=== PATIENT | female | born 1930 | race Caucasian/White ===

== ENCOUNTER 2017-04-01 14:07 | Inpatient (IN) | payer MEDICARE ==
[~2017-04-01] VITALS: Ht 160 cm; Wt 64.4 kg
[~2017-04-01 14:07] MED LIST: AMIT10 PO; AMITRIPTYLINE PO; ASPI81EC PO; BENZ2 PO; BISA10S PR; CALPHO600 PO; Colace100 MG PO; GAVILAX17 GM PO; HYDR1TAB94 PO; LEVSOD75 PO; MAGGLU250 PO; MULVITA PO; Norco 5-325 Ta1 EACH PO; PREG150 PO; PREG75 PO; Prilosec20 MG PO; VITB100 PO; [UNRECOGNIZED DRUG - OTHER] PO
[2017-04-16] MEDS ORDERED: Omeprazole20 M1 PO (11:02)
[2017-04-24] MEDS ORDERED: OXYC10TA19 PO (06:37)
[2017-04-25 04:57] LABS: BASOPHILS ABSOLUTE AUTO 0.01 K/mm3 (0.00-0.23); BASOPHILS PERCENT AUTO 0 % (0-2); EOSINOPHILS PERCENT AUTO 0 % (0-6); Hematocrit 30.1 % (33.0-51.0); IMMATURE GRAN ABSOLUTE AUTO 0.01 K/mm3 (0.00-0.10); IMMATURE GRAN PERCENT AUTO 0 % (0-1); LYMPHOCYTES PERCENT AUTO 13 % (21-46); MONOCYTES ABSOLUTE AUTO 0.34 K/mm3 (0.16-1.47); MONOCYTES PERCENT AUTO 7 % (4-13); Mean Corpuscular HGB 28.9 pg (26.0-34.0); Mean Corpuscular HGB Conc 33.2 g/dL (31.5-36.5); Mean Corpuscular Volume 87 fL (80-100); Mean Platelet Volume 9.2 fL (9.1-12.4); NEUTROPHILS ABSOLUTE AUTO 3.67 K/mm3 (1.96-9.15); NEUTROPHILS PERCENT AUTO 79 % (41-73); Platelet Count 223 K/mm3 (150-400); RDW Coefficient Variation 13.3 % (11.7-14.2); RDW Standard Deviation 41.9 fL (35.1-46.3); Red Blood Cell Count 3.46 M/mm3 (3.80-5.20); White Blood Cell Count 4.63 K/mm3 (4.00-11.30)
[2017-04-25 05:11] LABS: Anion Gap 7 mmol/L (6-16); Blood Urea Nitrogen 14 mg/dL (8-24); Bun/Creatinine Ratio 24.3 (12.0-20.0); CO2, Blood 25 mmol/L (21-32); Calcium, Blood 8.7 mg/dL (8.5-10.1); Chloride, Blood 97 mmol/L (98-108); Creatinine, Blood 0.58 mg/dL (0.40-1.00); Glomerular Filtration Rate >60 (60-); Glucose, Blood 103 mg/dL (70-99); Sodium, Blood 129 mmol/L (136-145)
[2017-04-25] MEDS ORDERED: ASPI325EC PO (10:29)
== END 2017-04-25 11:28 | disposition home or self-care (01) | DRG 483 ==
LOC: SURS 04-24 05:37 → PRE IP 04-24 07:30 → SURS 04-24 11:18
PROVIDERS: Orthopaedic Surgery
PROC: 0RRK0J7 Replacement of Left Shoulder Joint with Synthetic Substitute, Glenoid Surface, Open Approach (ICD-10-PCS; principal; 2017-04-24 07:30)
DX: M19.012 Primary osteoarthritis, left shoulder (principal); G62.9 Polyneuropathy, unspecified; K21.9 Gastro-esophageal reflux disease without esophagitis; E03.9 Hypothyroidism, unspecified; M35.00 Sjogren syndrome, unspecified; Z79.899 Other long term (current) drug therapy; Z88.1 Allergy status to other antibiotic agents; Z88.0 Allergy status to penicillin
CPT/HCPCS: 36415; 73030; 80048; 85025; 86850; 86900; 86901; 88300; 97110; 97116; 97162; 97165; 97530; 97535; C1776; G8978; G8979; G8987; G8988; J0171; J0735; J1100; J1885; J2250; J2405; J2710; J2795; J3010; J3370; J7120

== ENCOUNTER 2018-02-23 10:08 | Day surgery (SDC) | payer MEDICARE ==
[~2018-02-23 10:08] MED LIST changes: +ASPI325EC PO; +OXYC10TA19 PO; +Omeprazole20 M1 PO
[2018-02-23 11:07] LABS: Alanine Aminotransfer (ALT/SGP 15 U/L (12-78); Albumin, Blood 3.6 g/dL (3.4-5.0); Albumin/Globulin Ratio 0.8 (0.8-1.8); Alk Phos 79 U/L (50-136); Anion Gap 7 mmol/L (6-16); Aspartate Aminotrans (AST/SGOT 18 U/L (12-37); Bilirubin, Total 0.5 mg/dL (0.1-1.0); Blood Urea Nitrogen 9 mg/dL (8-24); CO2, Blood 26 mmol/L (21-32); Calcium, Blood 8.8 mg/dL (8.5-10.1); Chloride, Blood 94 mmol/L (98-108); Creatinine, Blood 0.56 mg/dL (0.40-1.00); Globulin, Blood 4.4 g/dL (2.2-4.0); Glomerular Filtration Rate >60 (60-); Glucose, Blood 117 mg/dL (70-99); LDL Direct Measurement 115 mg/dL (0-130); Potassium, Blood 3.9 mmol/L (3.5-5.5); Sodium, Blood 127 mmol/L (136-145)
[2018-02-23 13:20] LABS: WBC Count, Synovial Fluid 1528 /mm3 (0-180)
[2018-02-23 13:56] LABS: RBC Count, Synovial Fluid 307 /mm3 (0-0)
[2018-02-23 13:58] LABS: Body Fluid Crystals NEG (NEGATIVE)
[2018-02-23 14:28] LABS: Lymphs, Synovial Fluid 74 % (0-15); Monocytes/Macrophages, Synovia 24 % (0-65); Neutrophils, Synovial Fluid 2 % (0-24)
[2018-02-23 14:55] LABS: Appearance, Synovial Fluid Clear (Clear); Color, Synovial Fluid Yellow (None-P Yel)
== END 2018-02-23 23:06 | disposition home or self-care (01) ==
LOC: RAD 10:08
PROVIDERS: Family Medicine; Orthopaedic Surgery
DX: M25.519 Pain in unspecified shoulder (principal); Z96.60 Presence of unspecified orthopedic joint implant; Z47.1 Aftercare following joint replacement surgery; M75.122 Complete rotator cuff tear or rupture of left shoulder, not specified as traumatic; R61 Generalized hyperhidrosis
CPT/HCPCS: 20610; 36415; 77002; 80053; 83721; 87070; 87075; 87205; 89051; 89060

== ENCOUNTER 2020-07-16 04:03 | Emergency (ER) | payer MEDICARE ==
[~2020-07-16] VITALS: Ht 160 cm; Wt 58.1 kg
[2020-07-16 04:32] LABS: Source, Urine Catheter
[2020-07-16 04:33] LABS: Bilirubin, Urine Neg (Neg); Blood, Urine Neg (Neg); Glucose Qualitative, Urine Neg (Neg); Ketones, Urine Neg (Neg); Leukocyte Esterase, Urine Neg (Neg); Nitrite, Urine Neg (Neg); Protein, Urine Neg (Neg); Specific Gravity, Urine 1.005 (1.003-1.022); Urobilinogen, Urine NORM (Normal)
[2020-07-16 04:34] LABS: Appearance, Urine Clear (Clear); Color, Urine Yellow (P-Yellow)
[2020-07-16 05:24] LABS: BASOPHILS ABSOLUTE AUTO 0.02 K/mm3 (0.00-0.23); BASOPHILS PERCENT AUTO 0 % (0-2); EOSINOPHILS ABSOLUTE AUTO 0.03 K/mm3 (0.00-0.68); EOSINOPHILS PERCENT AUTO 0 % (0-6); Hematocrit 38.8 % (33.0-51.0); Hemoglobin 12.9 g/dL (11.5-16.0); IMMATURE GRAN ABSOLUTE AUTO 0.02 K/mm3 (0.00-0.10); IMMATURE GRAN PERCENT AUTO 0 % (0-1); LYMPHOCYTES ABSOLUTE AUTO 0.77 K/mm3 (0.84-5.20); LYMPHOCYTES PERCENT AUTO 11 % (21-46); MONOCYTES ABSOLUTE AUTO 0.44 K/mm3 (0.16-1.47); MONOCYTES PERCENT AUTO 6 % (4-13); Mean Corpuscular HGB Conc 33.2 g/dL (31.5-36.5); Mean Corpuscular Volume 90 fL (80-100); NEUTROPHILS ABSOLUTE AUTO 5.99 K/mm3 (1.96-9.15); NEUTROPHILS PERCENT AUTO 82 % (41-73); RDW Coefficient Variation 13.8 % (11.7-14.2); RDW Standard Deviation 45.7 fL (35.1-46.3); White Blood Cell Count 7.27 K/mm3 (4.00-11.30)
[2020-07-16] MEDS ORDERED: AMLODIPINE BES2.5 MG PO (05:33)
[2020-07-16 05:39] LABS: Alanine Aminotransfer (ALT/SGP 17 U/L (12-78); Albumin, Blood 3.7 g/dL (3.4-5.0); Albumin/Globulin Ratio 0.8 (0.8-1.8); Alk Phos 89 U/L (50-136); Anion Gap 6 mmol/L (6-16); Aspartate Aminotrans (AST/SGOT 12 U/L (12-37); Bilirubin, Total 0.4 mg/dL (0.1-1.0); Blood Urea Nitrogen 9 mg/dL (8-24); Bun/Creatinine Ratio 15.5 (12.0-20.0); CO2, Blood 25 mmol/L (21-32); Chloride, Blood 102 mmol/L (98-108); Creatinine, Blood 0.58 mg/dL (0.40-1.00); Globulin, Blood 4.7 g/dL (2.2-4.0); Glomerular Filtration Rate >60 (60-); Glucose, Blood 108 mg/dL (70-99); Potassium, Blood 3.6 mmol/L (3.5-5.5); Sodium, Blood 133 mmol/L (136-145); Total Protein, Blood 8.4 g/dL (6.4-8.2); Troponin I <0.015 ng/mL (0.000-0.040)
[2020-07-16 05:43] LABS: Platelet Count 225 K/mm3 (150-400)
[2020-07-31] MEDS ORDERED: FISH OIL 1,2001 EAC4 (09:32)
[2020-07-31] MEDS ORDERED: TUMS500 MG (09:32)
[2020-07-31] MEDS ORDERED: CENTRUM SILVER1 EAC2 (09:32)
[2020-07-31] MEDS ORDERED: SERT25 (09:33)
[2020-07-31] MEDS ORDERED: Percocet 5-3251 EACH (09:33)
[2020-07-31] MEDS ORDERED: OMEP20ER (09:33)
== END 2020-07-16 08:22 | disposition home or self-care (01) ==
LOC: ER 04:03
PROVIDERS: Emergency Medicine
DX: R10.9 Unspecified abdominal pain (principal); Z79.899 Other long term (current) drug therapy
CPT/HCPCS: 36415; 74177; 80053; 81003; 83605; 84484; 85025; 93005; 93010; 96374-59; 99284-25; J2270; J7030; Q9967

== ENCOUNTER 2020-08-07 09:23 | Day surgery (SDC) | payer MEDICARE ==
[~2020-08-07] VITALS: Ht 160 cm; Wt 59.0 kg
[~2020-08-07 09:23] MED LIST changes: +AMLODIPINE BES2.5 MG PO; +CENTRUM SILVER1 EAC2; +FISH OIL 1,2001 EAC4; +OMEP20ER; +Percocet 5-3251 EACH; +SERT25; +TUMS500 MG
== END 2020-08-07 12:06 | disposition home or self-care (01) ==
LOC: ORSCSDS 09:23
PROVIDERS: Internal Medicine Gastroenterology
PROC: 0DB68ZX Excision of Stomach, Via Natural or Artificial Opening Endoscopic, Diagnostic (ICD-10-PCS; principal; 2020-08-07 10:45)
PROC: 0DB98ZX Excision of Duodenum, Via Natural or Artificial Opening Endoscopic, Diagnostic (ICD-10-PCS; principal; 2020-08-07 10:45)
PROC: 0DJD8ZZ Inspection of Lower Intestinal Tract, Via Natural or Artificial Opening Endoscopic (ICD-10-PCS; principal; 2020-08-07 10:45)
DX: R10.84 Generalized abdominal pain (principal); R11.0 Nausea; Z85.038 Personal history of other malignant neoplasm of large intestine; K57.30 Diverticulosis of large intestine without perforation or abscess without bleeding; K44.9 Diaphragmatic hernia without obstruction or gangrene; K29.60 Other gastritis without bleeding
CPT/HCPCS: 88305; 88342; J2704; J7120